=== PATIENT | female | born 1945 | race Caucasian/White ===

== ENCOUNTER 2017-04-01 19:46 | Inpatient (IN) | payer MEDICARE, OTHER ==
--- NOTE | ~2017-04-01 | HP ---
History And Physical [place] [id number] [facility] [place]. [address] NAME: TONNY TOTH : 45 STATUS : ADM IN [facility]#: [id number] AGE: 71 ADM/REG DATE : 04/01/17 MR#: [id number] REPORT SERV DATE: 04/02/17 DICTATED BY: SIRENA TAYLOR DATE: 04/01/17 REPORT STATUS : Draft TRANSCRIBED BY: MODL DATE: 04/01/17 DATE OF ADMISSION: 04/01/2017 CHIEF COMPLAINT: Red blood per rectum, abdominal pain since . HISTORY OF PRESENT ILLNESS: This is a very pleasant 71-year-old female with past medical history significant for high blood pressure, COPD, mild mental retardation, history of congenital heart disease, likely ventricular septal defect, who had been admitted on , at [facility] with abdominal pain and rectal bleed. According to the patient as well as her landlord and power of managing attorney, she developed some diarrhea, nausea and vomiting, and some left lower quadrant abdominal pain. After that, she developed bright red blood per rectum and CT scan of the abdomen and pelvis that had been performed during that day showed severe colitis, some enteritis, no perforation or abscess; questionable etiology. She has been placed on broad-spectrum antibiotics, clear liquid diet. She has been continued to be treated and observed. It is important to note that according to the patient, she improved some, but she still has persistent red blood per rectum, no diarrhea though. According again to the patient and the landlord, the patient had a repeat CT of the abdomen and pelvis yesterday which has not shown any improvement. As a result, and the fact that she has continued to bleed and she had slow dropping of her H and H, she has presented to [facility] as a transfer for further evaluation and GI consult. The patient did not have any chest pain or increasing shortness of breath. No PND or orthopnea. No palpitation. She is a smoker. She has been smoking a pack a day for at least 50 years. She has not had any melena or hematochezia. Mostly, her complaint was red blood per rectum. She never experienced any GI bleed, nor has she had any EGD or colonoscopy performed in her life. PAST MEDICAL HISTORY: Significant for mental retardation, history of hypertension, congenital heart disease - likely ventricular septal defect, COPD, and pneumonia. PAST SURGICAL HISTORY: Includes hysterectomy. ALLERGIES: SHE DOES NOT HAVE ANY DRUG ALLERGIES. MEDICATIONS: At home include lisinopril, albuterol, and aspirin. FAMILY HISTORY: Significant for heart disease and diabetes. REVIEW OF SYSTEMS: A 14-point review of systems has been obtained and pertinent positives have been listed in the history of present illness. Otherwise, negative except those underlying above. PHYSICAL EXAMINATION: VITAL SIGNS: The patient is afebrile. Blood pressure 142/80, heart rate 83, respiratory rate 16, and saturating 97% on room air. GENERAL: She is a very pleasant, well-developed, well-nourished female, in no acute distress. She is alert and oriented x3. Nonfocal. She follows commands appropriately. History And Physical [address] [address] NAME: TONNY TOTH : 45 STATUS : ADM IN [facility]#: [id number] AGE: 71 ADM/REG DATE : 04/01/17 MR#: [id number] REPORT SERV DATE: 04/02/17 DICTATED BY: SIRENA TAYLOR DATE: 04/01/17 REPORT STATUS : Draft TRANSCRIBED BY: ERICK DATE: 04/01/17 HEENT: Shows pupils equal, round, reactive to light. Extraocular movements intact. No JVD. No lymphadenopathy. No thyromegaly appreciated. CHEST: Shows bilateral air entry. Clear anteroposterior. No wheezes, crackles, or rhonchi appreciated. CARDIOVASCULAR: Irregularly irregular. S1, S2 positive. No S3, no S4. There is a 3/6 holosystolic murmur. ABDOMEN: Soft. Mild left lower quadrant tenderness, but no guarding, no rebound. EXTREMITIES: No clubbing, cyanosis, or edema. NEUROLOGIC: She is alert and oriented x3. Nonfocal. She follows commands appropriately. LABORATORY DATA: Currently include sodium 138, potassium 3, chloride 104, CO2 of 29, BUN 4, creatinine 0.69, glucose is 115. Liver function tests are normal with total bilirubin 0.6, alkaline phosphatase 72, ALT 13, AST 20. White count of 5.1, hemoglobin 11.5, hematocrit 33.9, and platelets are 146. INR is 1.2. Her H and H this morning showed hemoglobin of 10.8 and hematocrit 31.9. ASSESSMENT: This is a very pleasant 71-year-old female with: 1. Severe colitis, questionable etiology, possible ischemic colitis versus inflammatory bowel disease versus infectious colitis. 2. Gastrointestinal bleed. 3. Anemia. 4. Paroxysmal atrial fibrillation. 5. Hypertension. 6. Congenital heart disease, possible ventricular septal defect. PLAN: 1. The patient is going to be admitted to Hospitalist Service. I am going to check her stools if she has any loose bowel movement. We will check stools for fecal leukocytes, C. difficile, bacterial pathogens, ova and parasites. Start her on IV antibiotics. We will repeat a CT of the abdomen and pelvis with oral Gastrografin and IV contrast in the morning as well as mesenteric duplex ultrasound of the mesenteric vessels. Check a lactate and consult serial H and H, consult anemia studies, and consult Dr. Smalls with whom I talked personally for evaluation and further recommendation. We will keep the patient on clear liquids as per GI recommendation and get the CT scan report from the [facility]. 2. GI bleed, likely secondary to above. H and H q.6 hours and transfuse as indicated. Place her on Protonix IV b.i.d. 3. Paroxysmal atrial fibrillation. Place the patient on Lopressor. Provide p.r.n. Cardizem as needed. 4. History of hypertension. We will continue her home medications. 5. COPD. P.r.n. nebulizers, with tobacco cessation education provided to the patient as well. 6. History of congenital heart disease, likely ventricular septal defect. We will check a 2D echo as well. 7. We will provide reasonable pain and nausea control as well as GI and DVT prophylaxis with SCDs. That has been discussed extensively with the patient. All the questions have been answered in full. The patient remains full code according to the patient's History And Physical [address] [facility] [address] NAME: TONNY TOTH : 45 STATUS : ADM IN [facility]#: [id number] AGE: 71 ADM/REG DATE : 04/01/17 MR#: [id number] REPORT SERV DATE: 04/02/17 DICTATED BY: SIERNA TAYLOR DATE: 04/01/17 REPORT STATUS : Draft TRANSCRIBED BY: MODL DATE: 04/01/17 prior wishes well stated. Further workup and recommendation pending above. CF/YULIL Sirena Taylor M.D. / [id number] CC: Damon Medina M.D.
--- NOTE | ~2017-04-01 | DS ---
Discharge Summary [facility] [address] [place]. [address] NAME: TONNY TOTH : 45 STATUS : DIS IN PAT#: [id number] AGE: 71 ADM/REG DATE : 04/01/17 MR#: [id number] REPORT SERV DATE: 04/08/17 DICTATED BY: FIORDALIZA VALENCIA DATE: 04/07/17 REPORT STATUS : Draft TRANSCRIBED BY: MODL DATE: 04/07/17 ADMISSION DATE: 04/01/2017 DISCHARGE DATE: 04/07/2017 HOSPITAL COURSE: This is a 71-year-old pleasant, intellectually disabled female with history of hypertension, COPD, mild mental retardation in the past, history of congenital heart disease with VSD, was admitted with abdominal pain, rectal bleeding at [facility], diarrhea, nausea, vomiting, and left lower quadrant abdominal pain. Had a CT that had shown descending colitis, had a GI consultation, mesenteric ultrasound exam negative thereafter, was planned for colonoscopy as the patient had fecal leukocytes that were positive, 10 to 15, did though better on mesalamine with possible IBD, did not want a colonoscopy, GI says could not go home on mesalamine. Stool culture was negative. The patient is amenable for discharge and in fact, she is anxiously awaiting discharge on the side of her bed. DISCHARGE MEDS: Mesalamine 2.4 g p.o. q.a.m., diltiazem CD 120 p.o. daily, metoprolol tartrate 37.5 p.o. b.i.d., ProAir HFA, sodium bicarb will not be given, the patient did have some atrial fibrillation with RVR. Apparently, this was diagnosed at [facility]. I would recommend aspirin and Plavix given her bright red blood per rectum as an outpatient a good primary care doctor. I did an echo here, LVEF 52%. Markedly dilated right ventricle, right atrium consistent with moderate left ventricle dysfunction and flattening of septum and systole, consistent pressure volume overload with pulmonary hypertension, RVSP of 50 mmHg. CONSULTS: GI. PROCEDURES: Echo. DISCHARGE DIAGNOSIS: See above. Pulmonary hypertension, descending colitis, bright red blood per rectum, hypertension, chronic obstructive pulmonary disease, paroxysmal atrial fibrillation, intellectual disability, and type 2 demand ischemia. DICTATED BY: Fiordaliza Valencia DO WST/MODL Fiordaliza Valencia DO / [id number] CC: Fiordaliza Valencia DO Discharge Summary [address] [address] NAME: TONNY TOTH : 45 STATUS : DIS IN PAT#: [id number] AGE: 71 ADM/REG DATE : 04/01/17 MR#: [id number] REPORT SERV DATE: 04/08/17 DICTATED BY: FIORDALIZA VALENCIA DATE: 04/07/17 REPORT STATUS : Draft TRANSCRIBED BY: MODL DATE: 04/07/17 Solomon Ritter MD
[~2017-04-01 19:46] MED LIST: CALTRA600D PO; FOSAMAX70 MG PO; GLUCOTRO10 PO; GLUCPH PO; HCTZ25B PO; METHAZOLAMID50 MG OR; MOBIC7.5 PO; MYSOLINE250 MG OR; PINDOLOL5 MG OR; PROAIR HFA INH; VIT B-SIX 50 MG50 MG OR; [UNRECOGNIZED DRUG - REMARK]
[2017-04-01] MEDS ORDERED: PRIN5 PO (20:24)
[2017-04-01] MEDS ORDERED: PROAIR HFA INH (20:24)
[2017-04-01 21:26] LABS: BASOPHILS 0.2 %; BASOPHILS ABSOLUTE 0.01 10/3/uL (0.0-0.16); EOSINOPHILS 0.8 %; EOSINOPHILS ABSOLUTE 0.04 10/3/uL (0.0-0.53); HEMATOCRIT 33.9 % (36.0-48.0); HEMOGLOBIN 11.5 g/dL (12.0-16.0); IMMATURE GRANULOCYTES 0.4 %; IMMATURE GRANULOCYTES ABSOLUTE 0.02 10/3/uL (0.0-0.11); LYMPHOCYTES 25.8 %; LYMPHOCYTES ABSOLUTE 1.31 10/3/uL (0.67-4.30); MANUAL DIFF NO %; MEAN CORPUS HGB CONC 33.9 g/dL (32.0-36.0); MEAN CORPUSCULAR HEMOGLOB 31.6 pg (26.0-34.0); MEAN CORPUSCULAR VOLUME 93.1 fL (80-100); MEAN PLATELET VOLUME 9.9 fL (9.2-13.0); MONOCYTES ABSOLUTE 0.81 10/3/uL (0.21-1.20); NEUTROPHILS 56.8 %; NEUTROPHILS ABSOLUTE 2.88 10/3/uL (2.02-8.40); PLATELET COUNT 146 10/3/uL (150-400); RBC DISTRIBUTION WIDTH 14.2 % (12.0-16.0); RED CELL COUNT 3.64 10/6/uL (4.0-5.6); WHITE BLOOD CELLS 5.1 10/3/uL (4.5-10.5)
[2017-04-01 21:33] LABS: INTERNATIONAL NORMAL RATI 1.2 UNITS (-); PROTIME (NOT ORD) 15.5 SEC (12.0-14.5)
[2017-04-01 21:42] LABS: A/G RATIO 0.9 (0.7-1.9); ALBUMIN 2.9 G/DL (3.5-5.0); ALKALINE PHOSPHATASE 72 U/L (45-117); BUN (BLOOD UREA NITROGEN) 4 MG/DL (6-23); CALCIUM, SERUM 8.3 MG/DL (8.5-10.4); CHLORIDE, SERUM 104 MMOL/L (96-112); CO2 (CARBON DIOXIDE) 29 MMOL/L (24-34); CREATININE 0.69 MG/DL (0.55-1.02); GFR AFRICAN AMERICAN 102 ML/MIN (>=60); GFR NON AFRICAN AMERICAN 88 ML/MIN (>=60); GLOBULIN 3.2 G/DL (2.5-4.1); GLUCOSE, SERUM 115 MG/DL (60-99); SGOT(AST) 20 U/L (5-40); SGPT(ALT) 13 U/L (5-65); SODIUM, SERUM 138 MMOL/L (135-148); TOTAL BILIRUBIN 0.6 MG/DL (0-1.2); TOTAL PROTEIN 6.1 G/DL (6.0-8.5)
[2017-04-01 23:35] LABS: HEMATOCRIT 34.2 % (36.0-48.0); HEMOGLOBIN 11.7 g/dL (12.0-16.0); PLATELET COUNT 162 10/3/uL (150-400)
[2017-04-01 23:39] LABS: PARTIAL THROMBO TIME 32.5 SEC (22.5-37.2)
[2017-04-01 23:49] LABS: C-REACTIVE PROTEIN 68.2 MG/L (<8.0)
[2017-04-02 00:09] LABS: FOLATE 7.8 NG/ML (>5.2); FREE T4 1.22 NG/DL (0.76-1.46); PHOSPHORUS, SERUM 2.9 MG/DL (2.5-4.5); TROPONIN I 0.33 NG/ML (<0.05); ULTRASENSITIVE TSH 3.98 MCIU/ML (0.358-3.740)
[2017-04-02 00:26] LABS: SED RATE 22 MM/HR (0-20)
[2017-04-02 06:33] LABS: BUN (BLOOD UREA NITROGEN) 5 MG/DL (6-23); CALCIUM, SERUM 8.1 MG/DL (8.5-10.4); CHLORIDE, SERUM 105 MMOL/L (96-112); CO2 (CARBON DIOXIDE) 29 MMOL/L (24-34); CREATININE 0.59 MG/DL (0.55-1.02); GFR AFRICAN AMERICAN 107 ML/MIN (>=60); GFR NON AFRICAN AMERICAN 92 ML/MIN (>=60); GLUCOSE, SERUM 92 MG/DL (60-99); POTASSIUM, SERUM 3.1 MMOL/L (3.5-5.3); SODIUM, SERUM 140 MMOL/L (135-148)
[2017-04-02 06:35] LABS: BASOPHILS 0.3 %; BASOPHILS ABSOLUTE 0.02 10/3/uL (0.0-0.16); EOSINOPHILS ABSOLUTE 0.06 10/3/uL (0.0-0.53); HEMATOCRIT 32.5 % (36.0-48.0); HEMOGLOBIN 11.1 g/dL (12.0-16.0); IMMATURE GRANULOCYTES 0.7 %; IMMATURE GRANULOCYTES ABSOLUTE 0.04 10/3/uL (0.0-0.11); LYMPHOCYTES 24.5 %; MANUAL DIFF NO %; MEAN CORPUS HGB CONC 34.2 g/dL (32.0-36.0); MEAN CORPUSCULAR HEMOGLOB 32.1 pg (26.0-34.0); MEAN CORPUSCULAR VOLUME 93.9 fL (80-100); MEAN PLATELET VOLUME 10.6 fL (9.2-13.0); MONOCYTES 13.6 %; MONOCYTES ABSOLUTE 0.78 10/3/uL (0.21-1.20); NEUTROPHILS 59.9 %; NEUTROPHILS ABSOLUTE 3.42 10/3/uL (2.02-8.40); PLATELET COUNT 168 10/3/uL (150-400); RBC DISTRIBUTION WIDTH 14.2 % (12.0-16.0); RED CELL COUNT 3.46 10/6/uL (4.0-5.6); WHITE BLOOD CELLS 5.7 10/3/uL (4.5-10.5)
[2017-04-02 07:43] LABS: GLYCOHEMOGLOBIN (HbA1c) 5.2 % (4.7-6.1)
[2017-04-02 08:58] LABS: TROPONIN I 0.23 NG/ML (<0.05)
[2017-04-02 11:58] LABS: HEMATOCRIT 34.2 % (36.0-48.0); HEMOGLOBIN 11.5 g/dL (12.0-16.0)
[2017-04-02 12:34] LABS: ASCORBIC ACID (UR NOT ORDER) NEG (NEG); BILIRUBIN, URINE NEGATIVE (NEG); KETONE, URINE TRACE MG/DL (NEG); LEUKOCYTE ESTERASE(NOT OR TRACE (NEG); WBC (NOT ORDERED) (RFLEX) 2 (0-5)
[2017-04-02 13:31] LABS: CPK 35 U/L (0-200)
[2017-04-02 13:32] LABS: CK-MB 1.6 NG/ML; TROPONIN I 0.17 NG/ML (<0.05)
[2017-04-02 13:49] LABS: PROCALCITONIN 0.18 ng/mL (<0.5)
[2017-04-02 17:57] LABS: HEMATOCRIT 31.7 % (36.0-48.0); HEMOGLOBIN 10.7 g/dL (12.0-16.0)
[2017-04-02 19:08] LABS: CK-MB 1.7 NG/ML; CPK 36 U/L (0-200)
[2017-04-02 19:09] LABS: TROPONIN I 0.14 NG/ML (<0.05)
[2017-04-03 00:42] LABS: HEMATOCRIT 31.1 % (36.0-48.0); HEMOGLOBIN 10.6 g/dL (12.0-16.0)
[2017-04-03 06:40] LABS: BASOPHILS 0.5 %; BASOPHILS ABSOLUTE 0.03 10/3/uL (0.0-0.16); EOSINOPHILS 0.5 %; EOSINOPHILS ABSOLUTE 0.03 10/3/uL (0.0-0.53); HEMATOCRIT 31.8 % (36.0-48.0); HEMOGLOBIN 10.8 g/dL (12.0-16.0); IMMATURE GRANULOCYTES 0.9 %; IMMATURE GRANULOCYTES ABSOLUTE 0.05 10/3/uL (0.0-0.11); LYMPHOCYTES 25.4 %; LYMPHOCYTES ABSOLUTE 1.45 10/3/uL (0.67-4.30); MEAN CORPUSCULAR VOLUME 94.4 fL (80-100); MEAN PLATELET VOLUME 10.3 fL (9.2-13.0); MONOCYTES 13.7 %; MONOCYTES ABSOLUTE 0.78 10/3/uL (0.21-1.20); NEUTROPHILS ABSOLUTE 3.37 10/3/uL (2.02-8.40); PLATELET COUNT 155 10/3/uL (150-400); RBC DISTRIBUTION WIDTH 14.5 % (12.0-16.0); RED CELL COUNT 3.37 10/6/uL (4.0-5.6); WHITE BLOOD CELLS 5.7 10/3/uL (4.5-10.5)
[2017-04-03 06:41] LABS: MANUAL DIFF NO %
[2017-04-03 06:57] LABS: ALBUMIN 2.6 G/DL (3.5-5.0); ALKALINE PHOSPHATASE 65 U/L (45-117); BUN (BLOOD UREA NITROGEN) 7 MG/DL (6-23); CHLORIDE, SERUM 106 MMOL/L (96-112); CREATININE 0.64 MG/DL (0.55-1.02); DIRECT BILIRUBIN 0.1 MG/DL (0.0-0.4); GFR AFRICAN AMERICAN 104 ML/MIN (>=60); GFR NON AFRICAN AMERICAN 90 ML/MIN (>=60); GLUCOSE, SERUM 98 MG/DL (60-99); INDIRECT BILIRUBIN(NOT ORDER) 0.4 MG/DL (0.1-0.9); PHOSPHORUS, SERUM 2.4 MG/DL (2.5-4.5); POTASSIUM, SERUM 3.4 MMOL/L (3.5-5.3); SGOT(AST) 24 U/L (5-40); SGPT(ALT) 13 U/L (5-65); SODIUM, SERUM 138 MMOL/L (135-148); TOTAL BILIRUBIN 0.5 MG/DL (0-1.2); TOTAL PROTEIN 5.6 G/DL (6.0-8.5)
[2017-04-03 06:58] LABS: C-REACTIVE PROTEIN 45.6 MG/L (<8.0); CO2 (CARBON DIOXIDE) 23 MMOL/L (24-34)
[2017-04-04 06:49] LABS: BUN (BLOOD UREA NITROGEN) 5 MG/DL (6-23); CALCIUM, SERUM 7.8 MG/DL (8.5-10.4); CHLORIDE, SERUM 108 MMOL/L (96-112); CO2 (CARBON DIOXIDE) 24 MMOL/L (24-34); CREATININE 0.64 MG/DL (0.55-1.02); GFR AFRICAN AMERICAN 104 ML/MIN (>=60); GFR NON AFRICAN AMERICAN 90 ML/MIN (>=60); GLUCOSE, SERUM 112 MG/DL (60-99); PHOSPHORUS, SERUM 2.4 MG/DL (2.5-4.5); POTASSIUM, SERUM 3.7 MMOL/L (3.5-5.3); SODIUM, SERUM 140 MMOL/L (135-148)
[2017-04-04 06:51] LABS: BASOPHILS 0.2 %; BASOPHILS ABSOLUTE 0.01 10/3/uL (0.0-0.16); EOSINOPHILS 1.6 %; EOSINOPHILS ABSOLUTE 0.09 10/3/uL (0.0-0.53); HEMATOCRIT 30.8 % (36.0-48.0); HEMOGLOBIN 10.5 g/dL (12.0-16.0); IMMATURE GRANULOCYTES 0.7 %; IMMATURE GRANULOCYTES ABSOLUTE 0.04 10/3/uL (0.0-0.11); LYMPHOCYTES 25.9 %; LYMPHOCYTES ABSOLUTE 1.43 10/3/uL (0.67-4.30); MEAN CORPUS HGB CONC 34.1 g/dL (32.0-36.0); MEAN CORPUSCULAR HEMOGLOB 31.8 pg (26.0-34.0); MEAN CORPUSCULAR VOLUME 93.3 fL (80-100); MEAN PLATELET VOLUME 10.5 fL (9.2-13.0); MONOCYTES 14.8 %; MONOCYTES ABSOLUTE 0.82 10/3/uL (0.21-1.20); NEUTROPHILS 56.8 %; NEUTROPHILS ABSOLUTE 3.14 10/3/uL (2.02-8.40); PLATELET COUNT 188 10/3/uL (150-400); RBC DISTRIBUTION WIDTH 14.2 % (12.0-16.0); WHITE BLOOD CELLS 5.5 10/3/uL (4.5-10.5)
[2017-04-04 06:55] LABS: MANUAL DIFF NO %
[2017-04-05 04:56] LABS: BASOPHILS 0.2 %; BASOPHILS ABSOLUTE 0.01 10/3/uL (0.0-0.16); EOSINOPHILS 1.5 %; EOSINOPHILS ABSOLUTE 0.09 10/3/uL (0.0-0.53); HEMATOCRIT 31.1 % (36.0-48.0); HEMOGLOBIN 10.4 g/dL (12.0-16.0); IMMATURE GRANULOCYTES 0.8 %; IMMATURE GRANULOCYTES ABSOLUTE 0.05 10/3/uL (0.0-0.11); LYMPHOCYTES 23.9 %; LYMPHOCYTES ABSOLUTE 1.42 10/3/uL (0.67-4.30); MEAN CORPUS HGB CONC 33.4 g/dL (32.0-36.0); MEAN CORPUSCULAR HEMOGLOB 31.6 pg (26.0-34.0); MEAN CORPUSCULAR VOLUME 94.5 fL (80-100); MEAN PLATELET VOLUME 10.5 fL (9.2-13.0); MONOCYTES 14.3 %; MONOCYTES ABSOLUTE 0.85 10/3/uL (0.21-1.20); NEUTROPHILS 59.3 %; NEUTROPHILS ABSOLUTE 3.52 10/3/uL (2.02-8.40); PLATELET COUNT 210 10/3/uL (150-400); RBC DISTRIBUTION WIDTH 14.6 % (12.0-16.0); RED CELL COUNT 3.29 10/6/uL (4.0-5.6); WHITE BLOOD CELLS 5.9 10/3/uL (4.5-10.5)
[2017-04-05 04:57] LABS: MANUAL DIFF NO %
[2017-04-05 04:58] LABS: BUN (BLOOD UREA NITROGEN) 4 MG/DL (6-23); CALCIUM, SERUM 7.6 MG/DL (8.5-10.4); CHLORIDE, SERUM 108 MMOL/L (96-112); CO2 (CARBON DIOXIDE) 26 MMOL/L (24-34); CREATININE 0.56 MG/DL (0.55-1.02); GFR AFRICAN AMERICAN 109 ML/MIN (>=60); GFR NON AFRICAN AMERICAN 94 ML/MIN (>=60); GLUCOSE, SERUM 104 MG/DL (60-99); PHOSPHORUS, SERUM 2.6 MG/DL (2.5-4.5); POTASSIUM, SERUM 3.8 MMOL/L (3.5-5.3); SODIUM, SERUM 141 MMOL/L (135-148)
[2017-04-06 08:10] LABS: BASOPHILS 0.1 %; BASOPHILS ABSOLUTE 0.01 10/3/uL (0.0-0.16); EOSINOPHILS 0.7 %; EOSINOPHILS ABSOLUTE 0.05 10/3/uL (0.0-0.53); HEMATOCRIT 30.9 % (36.0-48.0); HEMOGLOBIN 10.6 g/dL (12.0-16.0); IMMATURE GRANULOCYTES 0.7 %; IMMATURE GRANULOCYTES ABSOLUTE 0.05 10/3/uL (0.0-0.11); LYMPHOCYTES 17.5 %; LYMPHOCYTES ABSOLUTE 1.24 10/3/uL (0.67-4.30); MEAN CORPUS HGB CONC 34.3 g/dL (32.0-36.0); MEAN CORPUSCULAR HEMOGLOB 32.1 pg (26.0-34.0); MEAN CORPUSCULAR VOLUME 93.6 fL (80-100); MEAN PLATELET VOLUME 10.3 fL (9.2-13.0); MONOCYTES 9.9 %; NEUTROPHILS 71.1 %; NEUTROPHILS ABSOLUTE 5.02 10/3/uL (2.02-8.40); PLATELET COUNT 223 10/3/uL (150-400); RBC DISTRIBUTION WIDTH 14.8 % (12.0-16.0); WHITE BLOOD CELLS 7.1 10/3/uL (4.5-10.5)
[2017-04-06 08:13] LABS: MANUAL DIFF NO %
[2017-04-06 08:25] LABS: BUN (BLOOD UREA NITROGEN) 3 MG/DL (6-23); CALCIUM, SERUM 8.1 MG/DL (8.5-10.4); CHLORIDE, SERUM 105 MMOL/L (96-112); CO2 (CARBON DIOXIDE) 29 MMOL/L (24-34); GFR AFRICAN AMERICAN 106 ML/MIN (>=60); GFR NON AFRICAN AMERICAN 92 ML/MIN (>=60); GLUCOSE, SERUM 105 MG/DL (60-99); POTASSIUM, SERUM 3.5 MMOL/L (3.5-5.3); SODIUM, SERUM 139 MMOL/L (135-148)
[2017-04-06 13:35] LABS: HEMATOCRIT 32.7 % (36.0-48.0)
[2017-04-06 18:08] LABS: HEMATOCRIT 31.9 % (36.0-48.0); HEMOGLOBIN 10.9 g/dL (12.0-16.0)
[2017-04-06 21:49] LABS: HEMATOCRIT 33.6 % (36.0-48.0); HEMOGLOBIN 11.3 g/dL (12.0-16.0)
[2017-04-07] MEDS ORDERED: CARDCD180 PO (17:14)
[2017-04-07] MEDS ORDERED: LOP50 PO (17:21)
[2017-04-07] MEDS ORDERED: LIALDA1.2 GM PO ×2 (17:24→18:49)
[2017-04-07] MEDS ORDERED: LIALDA1.2 GM (18:47)
== END 2017-04-07 21:29 | disposition home health service (06) | DRG 392 ==
LOC: 4SO 19:46
PROVIDERS: Internal Medicine; Internal Medicine Gastroenterology; Internal Medicine Pulmonary Disease
DX: K52.9 Noninfective gastroenteritis and colitis, unspecified (principal); I24.8 Other forms of acute ischemic heart disease; I27.2 Other secondary pulmonary hypertension; Q21.0 Ventricular septal defect; J44.9 Chronic obstructive pulmonary disease, unspecified; I48.0 Paroxysmal atrial fibrillation; I10 Essential (primary) hypertension; D64.9 Anemia, unspecified; F70 Mild intellectual disabilities; F17.210 Nicotine dependence, cigarettes, uncomplicated; E87.70 Fluid overload, unspecified; Z79.82 Long term (current) use of aspirin; Z82.49 Family history of ischemic heart disease and other diseases of the circulatory system; Z83.3 Family history of diabetes mellitus; Z90.710 Acquired absence of both cervix and uterus; Z98.890 Other specified postprocedural states
CPT/HCPCS: 36415; 71010; 74177; 80048; 80053; 80076; 81001; 82150; 82550; 82553; 82607; 82728; 82746; 83036; 83540; 83550; 83605; 83615; 83690; 83735; 83880; 84100; 84132; 84145; 84439; 84443; 84484; 85014; 85018; 85025; 85049; 85610; 85652; 85730; 86140; 86850; 86900; 86901; 86920; 87040; 87045; 87046; 87046-59; 87328; 87329; 87493; 87493-59; 87899; 87899-59; 89055; 93005; 93306; 93975; 94640; A9270-GY; C9113; J1956; J2405; J2543; Q9967